=== PATIENT | female | born 1975 | race Caucasian/White ===

== ENCOUNTER → 2016-10-16 | Outpatient (CLI) | payer OTHER ==
--- NOTE | 2016-10-16 10:26 | DX ---
3 Views Right Shoulder. Clinical Indications: Pain following trauma. Findings: The humeral head is normally located in the glenoid fossa. No fracture is identified. The bone alignment is normal. Impression: Negative for fracture.
== END ==
LOC: BMCIMAGING 09:48
PROVIDERS: ATTEND Family Medicine
DX: M25.511 Pain in right shoulder (principal)

== ENCOUNTER 2016-10-18 16:50 | Emergency (ER) | payer OTHER ==
[2016-10-18 16:56] VITALS: BP 191/130; PULSE 104; RESP 16; TEMP 98.4; O2SAT 96
--- NOTE | 2016-10-18 17:12 | EDPHY ---
H & P Time Seen by Provider: 10/18/16 17:00 HPI/ROS: CHIEF COMPLAINT: Continued right shoulder pain HISTORY OF PRESENT ILLNESS: 40-year-old female female with prior history of a remote right rotator cuff injury states that 2 days ago her dog ran into a lamp in her house which tipped over and impacted her right shoulder. She has been complaining of right shoulder pain ever since. Was seen at [facility] and had negative plain x-rays . She has continued pain. She has been performing Theraband exercises and has reproducible pain especially with external rotation of the humerus. No new trauma. PHYSICAL EXAM (Prior to examination, patient consented to physical exam, hands were washed and my usual and customary physical exam procedures followed) 1) GENERAL: Well-developed, well-nourished, alert and oriented. Appears to be in no acute distress. 2) HEAD: Normocephalic 3) HEENT: Pupils equal, round, reactive to light bilaterally. 4) LUNGS: Breathing comfortably. 5) MUSCULOSKELETAL: Normal anatomic landmarks, no step-off. Reproducible anterolateral shoulder pain with range of motion specifically external rotation and abduction. Soft compartments. Normal coloration. 6) SKIN: intact skin no tenting no discoloration no erythema. Normal color normal temperature. 7) VASCULAR: pulses and cap refill present are brisk. Brisk capillary refill. 8) NEUROLOGIC: Radial, ulnar, median nerve function intact with no deficits appreciated on exam DIFFERENTIAL DIAGNOSIS: in no particular order including but not limited to fracture, sprain, dislocation Procedure: Splint A sling was applied by ER education technician. After application of the splint I returned and re-examined the patient. The splint was adequately immobilizing the joint and distal to the splint the patient's circulation and sensation were intact. Patient shows no signs of compartment syndrome. Was given orthopedic precautions. Smoking Status: Current every day smoker Constitutional: Initial Vital Signs Temperature (C) 36.9 C 10/18/16 16:54 Heart Rate 104 H 10/18/16 16:54 Respiratory Rate 16 10/18/16 16:54 Blood Pressure 191/130 H 10/18/16 16:54 O2 Sat (%) 96 10/18/16 16:54 O2 Delivery Mode Room Air Allergies/Adverse Reactions: No Known Allergies Allergy (Unverified 10/18/16 16:57) Home Medications: Medication Instructions Recorded Escitalopram Oxalate 10/18/16 Hydrocodone/APAP 5/325 [[place] 1 tab PO Q6 PRN #15 tab 10/18/16 5/325 (RX)] Strattera 10/18/16 MDM/Departure - [facility] ED Course/Re-evaluation: I reviewed the patient's right shoulder x-ray interpreted by staff radiologist dated 2 days ago showing no acute osseous abnormality. Patient has no clinical findings to suggest dislocation or septic arthritis.At this time I do not think that emergent MRI currently indicated. I do not think that repeat x-ray currently indicated she had a negative x-ray 2 days ago and no acute trauma since. I recommended splint in the form of a sling and recommended range-of- motion exercises every hour while awake. I have recommended she follow up with Orthopedics. She is agreeable with this plan. Usual customary orthopedic precautions instructions provided. - Depart Disposition: Home, Routine, Self-Care Clinical Impression: Right shoulder pain Qualifiers: Chronicity: acute Qualifier Code: (M25.511) Pain in right shoulder Condition: Good Instructions: Shoulder Sprain (ED) Additional Instructions: Return to the ER immediately if you experience discoloration, have worsening pain, numbness, tingling, or any other symptoms that concern you. If you received x-rays in the emergency department today, be advised, that ligamentous , tendon, muscular, and other non-bony injury cannot be fully ruled out. Prescriptions: Hydrocodone/APAP 5/325 [[place] 5/325 (RX)] 1 tab PO Q6 PRN #15 tab PRN Reason: Pain, Severe Referrals: Serg Shah MD [Medical Doctor] - 2-3 days, call for appt. (Dr. Serg Shah is an orthopedic surgeon)
== END 2016-10-18 17:20 | disposition home or self-care (01) ==
DX: M25.511 Pain in right shoulder (principal); F17.200 Nicotine dependence, unspecified, uncomplicated

== ENCOUNTER 2017-10-07 11:13 | Emergency (ER) | payer OTHER ==
[2017-10-07 11:22] VITALS: RESP 16; TEMP 98.2
[2017-10-07 11:42] LABS: PLATELET COUNT 330 10^3/uL (150-400)
--- NOTE | 2017-10-07 11:51 | EDPHY ---
General - History Smoking Status: Former smoker Narrative: CHIEF COMPLAINT: Shortness of breath, vaginal bleeding HISTORY OF PRESENT ILLNESS: Patient presents with complaints of heavy vaginal bleeding and shortness of breath. The vaginal bleeding has been present since May. She was on Lupron for 1 year prior to this for endometriosis. Her insurance is no longer covering it at that time. Since then she has had heavy bleeding, approximately 10 tampons +3 pads per day. She has been hospitalized twice for this. In July [facility]. In August in [place] while traveling. She received blood transfusions. She has had increasing shortness of breath over the past 2 days with this. Worse with exertion. Minimal improvement rest. She was seen by gynecology today. Pelvic exam was performed with endometrial biopsy. She was reportedly mildly hypoxic at 89%. She was sent here to the emergency department for higher level of care and further workup. They have requested gynecologic laboratory studies as ordered. They are also requesting that we contact them. REVIEW OF SYSTEMS: Ten systems reviewed and are negative unless otherwise noted in the HPI PCP: Dr. Joaquin SPECIALISTS: Established with Dr. Song today PAST MEDICAL HISTORY: Endometriosis, ADD, depression PAST SURGICAL HISTORY: No recent surgeries SOCIAL HISTORY: Nonsmoker. FAMILY HISTORY: Noncontributory EXAMINATION General Appearance: Alert, no distress Head: normocephalic, atraumatic Eyes: Pupils equal and round, no conjunctival pallor or injection ENT, Mouth: Mucous membranes moist. Airway patent. Neck: Normal inspection, supple, non-tender Respiratory: Lungs are clear to auscultation. No wheeze, rhonchi or crackles Cardiovascular: Regular rate and rhythm. No murmur. Gastrointestinal: Abdomen is soft and nontender. No tympany rigidity Back: non-tender, no bony abnormalities Neurological: A&O, nonfocal, normal gait Skin: Warm and dry, no rash no petechiae or purpura. No cyanosis or pallor Extremities: Nontender, no pedal edema Psychiatric: Mood and affect normal DIFFERENTIAL DIAGNOSES: Including but not limited to dyspnea on exertion, pulmonary edema, PE, pneumonia , anemia MDM: 11:45 a.m. Abnormal uterine bleeding with increasing shortness of breath. No chest pain of any kind. Vital signs are within normal limits. The patient was evaluated by Gynecology PRINT ROOM WORKER earlier today. I discussed the case with her myself. There laboratory studies that they have requested that I have ordered. Additionally I have ordered chest x-ray, BNP, CBC. She is not hypoxic. She is not tachypneic. She has no evidence of DVT by examination. 12:20 p.m. Patient's BNP is slightly elevated. Chemistries unremarkable. She is not acutely anemic. Chest x-ray does not show volume overload. The BNP is concerning to me given the normal chest x-ray and recent flights. I did not order D-dimer as the patient has heavy bleeding and clot formation, thus would be positive. I have ordered CT scan of the chest to rule out PE. 12:45 p.m. Notified by radiologist Dr. Holland. Ultrasound findings of the pelvis as documented. Unable to visualize the right ovary. 1:[address] scan of the chest is negative for PE. There is incidental note of arterial enhancing nodules in the liver. The recommendation is for follow-up in 6 months with further imaging. I have conveyed this to the patient and provided a copy of the report to the patient. She verbalizes that she will follow up with her primary care physician for this. 2:05 p.m. Patient re-evaluated at this time. At this time she has tolerable pain. Her heart rate is 80 beats per minute. Her oxygenation is 99% on room air. She is not actively hemorrhaging. I do feel she is stable for discharge home. I discussed the ultrasound findings with Ruma Gilman and Dr. Rivera. At this point we all feel that she is stable for discharge home. She has a follow up with her customer relations consultant on . She has ED precautions for worsening pain or bleeding greater than 1 pad per hour, or further concern. She is comfortable with this plan and discharged home stable condition. SUPERVISION: Patient was independently examined, but I discussed the case with my secondary supervising physician Dr. Rivera ([facility]) The patient was evaluated and managed by the physician photographer's assistant. I have reviewed this chart and I agree with the findings and plan of care as documented , as indicated by my signature. I am the secondary supervising physician. I did meet with him briefly examined the patient. At the time my examination she is complaining of lower abdominal pain. She is breathing comfortably and does not feel short of breath. Lungs are clear. Heart is regular rate and rhythm. Abdomen is soft with tenderness in both lower quadrants, worse on the right. No guarding or rebound. I reviewed the evaluation that has been done and comfortable with her discharge. (Maegan Rivera) - Diagnostics Imaging Results: Imaging Impressions Pelvic/Renal Ultrasound 10/07/17 11:36 Impression: 1. Enlarged uterus with heterogeneous-appearing myometrium. 2. The visualized endometrium is normal in thickness. 3. There is a small complex cystic structure at the lower uterine segment myometrial/endometrial interface. Apparently, the patient has had a recent endometrial biopsy, and this could represent a small focus of contained hemorrhage. 4. Nonvisualization of the right ovary despite transabdominal and endovaginal protocols. 5. Enlarged left ovary, which contains complex septated cystic components. Sonographic reevaluation in 8-12 weeks is suggested. There is no torsion. Findings were discussed with Dick Lombardi PA-C at 12:42, on 10/07/2017. Chest X-Ray 10/07/17 11:47 Impression: Normal chest x-ray. Chest/Thorax CTA 10/07/17 12:21 Impression: 1. No pulmonary embolic disease. 2. 2 small arterially enhancing nodules requiring followup. Recommend MRI of the liver (primary) or multiphase contrast CT (secondary) in 6 months. Does this patient have chronic hepatitis or a history of malignancy? Results discussed with Maegan Rivera at 1:25 pm. General information for patients regarding this examination can be found at [email or web address]. If you have questions or comments about this report, please contact me at [phone] (hospital) or [phone] (cell). - Objective Vital Signs: Initial Vital Signs Temperature (C) 36.8 C 10/07/17 11:20 Heart Rate 99 10/07/17 11:20 Respiratory Rate 16 10/07/17 11:20 Blood Pressure 174/101 H 10/07/17 11:20 O2 Sat (%) 99 10/07/17 11:20 O2 Delivery Mode Room Air Allergies/Adverse Reactions: No Known Allergies Allergy (Unverified 10/07/17 11:19) Home Medications: Medication Instructions Recorded Escitalopram Oxalate 10/18/16 Strattera 10/18/16 oxyCODONE HCL/ACETAMINOPHEN 1 each PO Q4-6PRN PRN #14 tablet 10/07/17 [Percocet 5-325 mg Tablet] Laboratory Results: Laboratory Results 10/07/17 11:35 10/07/17 11:35 10/07/17 10/07/17 10/07/17 11:35 11:35 11:35 WBC 11.74 10^3/uL H 10^3/uL (3.80-9.50) RBC 3.71 10^6/uL L 10^6/uL (4.18-5.33) Hgb 9.6 g/dL L g/dL (12.6-16.3) Hct 30.8 % L % (38.0-47.0) MCV 83.0 fL fL (81.5-99.8) MCH 25.9 pg L pg (27.9-34.1) MCHC 31.2 g/dL L g/dL (32.4-36.7) RDW 19.0 % H % (11.5-15.2) Plt Count 330 10^3/uL 10^3/uL (150-400) MPV 9.8 fL fL (8.7-11.7) Neut % (Auto) 69.1 % % (39.3-74.2) Lymph % (Auto) 20.0 % % (15.0-45.0) Davidson % (Auto) 5.2 % % (4.5-13.0) Eos % (Auto) 4.3 % % (0.6-7.6) Baso % (Auto) 1.0 % % (0.3-1.7) Nucleat RBC Rel Count 0.0 % % (0.0-0.2) Absolute Neuts (auto) 8.11 10^3/uL H 10^3/uL (1.70-6.50) Absolute Lymphs (auto) 2.35 10^3/uL 10^3/uL (1.00-3.00) Absolute Monos (auto) 0.61 10^3/uL 10^3/uL (0.30-0.80) Absolute Eos (auto) 0.50 10^3/uL H 10^3/uL (0.03-0.40) Absolute Basos (auto) 0.12 10^3/uL H 10^3/uL (0.02-0.10) Absolute Nucleated RBC 0.00 10^3/uL 10^3/uL (0-0.01) Immature Gran % 0.4 % % (0.0-1.1) Immature Gran # 0.05 10^3/uL 10^3/uL (0.00-0.10) Sodium 140 mEq/L mEq/L (135-145) Potassium 4.4 mEq/L mEq/L (3.5-5.2) Chloride 108 mEq/L mEq/L (97-110) Carbon Dioxide 18 mEq/l L mEq/l (22-31) Anion Gap 14 mEq/L mEq/L (8-16) BUN 11 mg/dL mg/dL (7-23) Creatinine 0.8 mg/dL mg/dL (0.6-1.0) Estimated GFR > 60 Glucose 87 mg/dL mg/dL (70-100) Calcium 9.2 mg/dL mg/dL (8.5-10.4) NT-Pro-B Natriuret Pep 1100 pg/mL H pg/mL (0-125) TSH 1.870 uIU/mL uIU/mL (0.465-4.680) Estradiol (E2) Level 328.90 pg/mL pg/mL FSH 1.31 mIU/mL mIU/mL Luteinizing Hormone < 0.22 mIU/mL mIU/mL Progesterone 1.04 ng/mL ng/mL Beta HCG, Qual NEGATIVE Medications Given: Discontinued Medications Ketorolac Tromethamine (Toradol) 30 mg IVP EDNOW ONE Stop: 10/07/17 14:15 Last Admin: 10/07/17 15:28 Dose: 30 mg Departure - Departure Disposition: Home, Routine, Self-Care Clinical Impression: DUB (dysfunctional uterine bleeding), Shortness of breath Condition: Good Instructions: Dysfunctional Uterine Bleeding (ED), Dyspnea (ED) Additional Instructions: 1. Medications as prescribed as needed 2. Keep your appointment with OB on 3. ED precautions for worsening pain, fever, bleeding greater than 1 pad per hour Referrals: Lenora Joaquin MD [Primary Care Provider] - As per Instructions Ruma Gilman CNM [Certified Nurse Driller Operator] - As per Instructions Radha Nichols MD [Medical Doctor] - As per Instructions Prescriptions: oxyCODONE HCL/ACETAMINOPHEN [Percocet 5-325 mg Tablet] 1 each PO Q4-6PRN PRN # 14 tablet PRN Reason: Pain, Breakthrough
[2017-10-07] MEDS ORDERED: IOPAMIDOL (ISOVUE 370) 100 ML BTL IV ONE (12:37)
--- NOTE | 2017-10-07 13:08 | CPEKG ---
Heart Rate: 87 RR Interval: 690 P-R Interval: 164 QRSD Interval: 88 QT Interval: 408 QTC Interval: 491 P [place]: 27 QRS [place]: 42 T Wave [place]: 45 EKG Severity - BORDERLINE ECG - EKG Impression: SINUS RHYTHM EKG Impression: BORDERLINE PROLONGED QT INTERVAL Electronically Signed By: Maegan Rivera 07-Oct-2017 16:27:18
[2017-10-07 13:13] VITALS: PULSE 87; O2SAT 98
[2017-10-07] MEDS ORDERED: KETOROLAC 30 MG/1 ML SDV IVP ONE (14:14)
[2017-10-07 15:38] VITALS: BP 157/89
== END 2017-10-07 15:36 | disposition home or self-care (01) ==
DX: N93.8 Other specified abnormal uterine and vaginal bleeding (principal); R06.02 Shortness of breath; Z87.891 Personal history of nicotine dependence
CPT/HCPCS: 84144-90; 96374; J1885; Q9967